=== PATIENT | male | born 1995 | race Two or more races ===

== ENCOUNTER 2020-09-23 04:48 | Emergency (ER) | payer SELFPAY ==
[~2020-09-23] VITALS: Ht 172.7 cm; Wt 81.0 kg
[2020-09-23 05:45] VITALS: BP 149/96
[2020-09-23] MEDS ORDERED: IBUPROFEN 600MG TABLET PO ONE (05:45)
== END 2020-09-23 06:58 | disposition home or self-care (01) ==
LOC: ER 04:48
DX: M79.671 Pain in right foot (principal); M79.672 Pain in left foot
CPT/HCPCS: 99283